=== PATIENT | female | born 1960 | race African-American/Black ===

== ENCOUNTER 2016-07-28 17:04 | Emergency (ER) | payer OTHER ==
[~2016-07-28] VITALS: Ht 157.5 cm; Wt 99.8 kg
[2016-07-28 18:58] LABS: PLATELET COUNT 223 K/uL (152-353)
[2016-07-28 19:09] LABS: POTASSIUM 4.2 mmol/L (3.6-5.2); SODIUM 137 mmol/L (136-145)
[2016-07-28 19:15] VITALS: BP 141/83; TEMP 98.4
== END 2016-07-28 19:20 | disposition home or self-care (01) ==
LOC: ED 17:04
DX: R51 Headache (principal); H10.9 Unspecified conjunctivitis
CPT/HCPCS: 36415; 80053; 81000; 85027; 99283

== ENCOUNTER 2016-08-22 13:38 | Observation (INO) | payer OTHER ==
[~2016-08-22] VITALS: Ht 160 cm; Wt 74.0 kg
[2016-08-22 13:49] VITALS: BP 162/82; TEMP 98.3
[2016-08-22 14:23] LABS: PLATELET COUNT 193 K/uL (152-353)
[2016-08-22 14:24] LABS: POTASSIUM 3.9 mmol/L (3.6-5.2); SODIUM 137 mmol/L (136-145)
[2016-08-22 14:53] LABS: PARTIAL THROMBOPLASTIN TIME 23.2 SECONDS (24.5-33.6)
[2016-08-22 18:22] VITALS: BP 149/84; TEMP 98.1; Ht 160 cm; Wt 74.0 kg
[2016-08-22 20:00] VITALS: BP 139/85; TEMP 98
[2016-08-23] VITALS: BP 121/68; TEMP 97.9
[2016-08-23 04:00] VITALS: BP 141/91; TEMP 97.6
[2016-08-23 05:28] LABS: PLATELET COUNT 188 K/uL (152-353)
[2016-08-23 05:46] LABS: SODIUM 137 mmol/L (136-145)
[2016-08-23 08:00] VITALS: BP 126/78; TEMP 98
== END 2016-08-23 14:05 | disposition home or self-care (01) ==
LOC: ED 13:38 → MED/SURG 15:52
PROVIDERS: Internal Medicine; ADMIT Emergency Medicine
DX: R07.89 Other chest pain (principal); R74.8 Abnormal levels of other serum enzymes
CPT/HCPCS: 36415; 80053; 82550; 83735; 83880; 84484; 85027; 85610; 85730; 93005; 99220; 99284; G0378; J1650; J3490

== ENCOUNTER 2016-11-02 09:22 | Emergency (ER) | payer OTHER ==
[~2016-11-02] VITALS: Ht 147.3 cm; Wt 67.1 kg
[2016-11-02 11:18] LABS: PLATELET COUNT 199 K/uL (152-353)
[2016-11-02 11:28] LABS: SODIUM 140 mmol/L (136-145)
[2016-11-02 14:30] VITALS: BP 136/90; TEMP 97.7
== END 2016-11-02 14:30 | disposition home or self-care (01) ==
LOC: ED 09:22
PROVIDERS: Specialist
DX: R51 Headache (principal); R06.4 Hyperventilation; F41.9 Anxiety disorder, unspecified
CPT/HCPCS: 36415; 80053; 81000; 82550; 82553; 83735; 84100; 84484; 85027; 85651; 93005; 96372; 99283; J1885

== ENCOUNTER 2016-11-25 19:15 | Emergency (ER) | payer OTHER ==
[~2016-11-25] VITALS: Ht 152.4 cm; Wt 68.9 kg
[2016-11-25 21:25] VITALS: BP 141/76; TEMP 98.1
== END 2016-11-25 21:26 | disposition home or self-care (01) ==
LOC: ED 19:15
DX: R51 Headache (principal); J32.9 Chronic sinusitis, unspecified
CPT/HCPCS: 96372; 99283; J1885

== ENCOUNTER 2017-03-05 22:17 | Emergency (ER) | payer OTHER ==
[~2017-03-05] VITALS: Ht 157.5 cm; Wt 60.8 kg
[2017-03-05 23:10] LABS: POTASSIUM 4.2 mmol/L (3.6-5.2); SODIUM 140 mmol/L (136-145)
[2017-03-05 23:57] VITALS: BP 132/67; TEMP 98.9
== END 2017-03-06 00:12 | disposition home or self-care (01) ==
LOC: ED 22:17
DX: R07.89 Other chest pain (principal); F41.9 Anxiety disorder, unspecified; R74.0 Nonspecific elevation of levels of transaminase and lactic acid dehydrogenase [LDH]; R68.89 Other general symptoms and signs
CPT/HCPCS: 36415; 80053; 82550; 83036; 84484; 93005; 99283

== ENCOUNTER 2017-11-19 18:54 | Emergency (ER) | payer OTHER ==
[~2017-11-19] VITALS: Ht 152.4 cm; Wt 72.6 kg
[2017-11-19 19:00] VITALS: TEMP 98.6
[2017-11-19 19:36] LABS: PLATELET COUNT 223 K/uL (152-353)
[2017-11-19 21:20] VITALS: BP 155/70
== END 2017-11-19 21:20 | disposition home or self-care (01) ==
LOC: ED 18:54
DX: N20.1 Calculus of ureter (principal)
CPT/HCPCS: 36415; 80053; 81000; 85027; 99283

== ENCOUNTER 2017-11-27 07:40 | Emergency (ER) | payer OTHER ==
[~2017-11-27] VITALS: Ht 152.4 cm; Wt 72.6 kg
[2017-11-27 07:52] VITALS: TEMP 97.3
[2017-11-27 08:33] VITALS: BP 140/94
== END 2017-11-27 08:34 | disposition home or self-care (01) ==
LOC: ED 07:40
DX: J01.90 Acute sinusitis, unspecified (principal); R51 Headache
CPT/HCPCS: 99282

== ENCOUNTER 2018-01-01 09:23 | Emergency (ER) | payer OTHER ==
[~2018-01-01] VITALS: Ht 152.4 cm; Wt 72.6 kg
[2018-01-01 09:38] VITALS: TEMP 98.8
[2018-01-01 09:43] LABS: PLATELET COUNT 235 K/uL (152-353)
[2018-01-01 09:52] LABS: POTASSIUM 4.1 mmol/L (3.6-5.2); SODIUM 141 mmol/L (136-145)
[2018-01-01 13:15] VITALS: BP 138/78
== END 2018-01-01 13:44 | disposition home or self-care (01) ==
LOC: ED 09:23
PROVIDERS: Emergency Medicine
DX: R07.89 Other chest pain (principal); I10 Essential (primary) hypertension
CPT/HCPCS: 36415; 80053; 82550; 82553; 84484; 85027; 85379; 93005; 96374; 99284; J2270

== ENCOUNTER 2018-01-02 06:27 | Emergency (ER) | payer OTHER ==
[~2018-01-02] VITALS: Ht 152.4 cm; Wt 72.6 kg
[2018-01-02 06:35] VITALS: TEMP 98
[2018-01-02 07:34] LABS: PLATELET COUNT 243 K/uL (152-353)
[2018-01-02 07:41] LABS: POTASSIUM 4.2 mmol/L (3.6-5.2); SODIUM 140 mmol/L (136-145)
[2018-01-02 08:08] VITALS: BP 168/82
== END 2018-01-02 08:11 | disposition home or self-care (01) ==
LOC: ED 06:27
PROVIDERS: Emergency Medicine
DX: M79.1 Myalgia (principal); K21.9 Gastro-esophageal reflux disease without esophagitis; R00.1 Bradycardia, unspecified
CPT/HCPCS: 36415; 80053; 82550; 82553; 84484; 85027; 87804; 93005; 99283; J1885